=== PATIENT | female | born 1980 | race Caucasian/White ===

== ENCOUNTER 2020-06-19 12:26 | Emergency (ER) | payer OTHER ==
[~2020-06-19] VITALS: Ht 163.8 cm; Wt 92.3 kg
[2020-06-19 19:21] VITALS: BP 145/91
== END 2020-06-19 19:22 | disposition home or self-care (01) ==
LOC: ER 12:28
DX: M25.511 Pain in right shoulder (principal); M79.601 Pain in right arm; Z90.49 Acquired absence of other specified parts of digestive tract; Z72.89 Other problems related to lifestyle
CPT/HCPCS: 93971; 99284